=== PATIENT | male | born 2000 | race Caucasian/White ===

== ENCOUNTER 2022-08-12 14:32 | Emergency (ER) | payer OTHER ==
[2022-08-12] MEDS ORDERED: Diphtheria,Pertussis(Acell),Tetanus Vaccine 0.5 ML Syringe IM ONE (14:43)
[2022-08-12] MEDS ORDERED: Sodium Chloride 0.9% 10 ML Syringe FLUSH PRN ×2 (14:43)
[2022-08-12] MEDS ORDERED: Sodium Chloride 0.9% 2.5 ML Syringe FLUSH PRN ×2 (14:43)
[2022-08-12] MEDS ORDERED: Sodium Chloride 0.9% 1,000 ML IV ONE ×2 (14:43→18:36)
[2022-08-12] MEDS ORDERED: Iopamidol 755 MG/ML 500 ML Multipack Bottle IVPUSH ONE (15:17)
[2022-08-12 17:31] LABS: POTASSIUM,K 4.1 mmol/L (3.5-5.1); SODIUM,NA 145 mmol/L (136-148)
[2022-08-12 17:32] LABS: BLOOD UREA NITROGEN,BUN 13 mg/dL (7.0-18.0); CHLORIDE,CL 108 mmol/L (98-107); ESTIMATED GFR 109 mL/min (>60); GLUCOSE RANDOM 94 mg/dL (74-106)
[2022-08-12 17:34] LABS: LIPASE 52 U/L (73-393)
[2022-08-12] MEDS ORDERED: Ketorolac 30 MG/ML SDV IVPUSH ONE (18:34)
[2022-08-12] MEDS ORDERED: Morphine 4 MG/ML Syringe IVPUSH ONE (18:41)
[2022-08-12] MEDS ORDERED: Cyclobenzaprine 10 MG Tab PO ONE (19:49)
== END 2022-08-12 20:27 | disposition home or self-care (01) ==
LOC: MW.ED 14:32
DX: S30.1XXA Contusion of abdominal wall, initial encounter (principal); M79.671 Pain in right foot; E66.01 Morbid (severe) obesity due to excess calories; Z68.42 Body mass index [BMI] 45.0-49.9, adult; Z86.16 Personal history of COVID-19; Z23 Encounter for immunization; V69.9XXA Occupant (driver) (passenger) of heavy transport vehicle injured in unspecified traffic accident, initial encounter; Y92.410 Unspecified street and highway as the place of occurrence of the external cause
CPT/HCPCS: 36415; 70450; 71260; 72125; 73030; 73610; 74177; 80053; 80305; 80307; 81001; 83690; 85025; 86850; 86900; 86901; 90471; 90715; 96361; 96374; 96375; 99285; A9270; J1885; J2270; J3490; J7030; Q9967; 72128-26; 72131-26